=== PATIENT | male | born 2005 | race Hispanic/Latino ===

== ENCOUNTER 2024-11-15 18:58 | Emergency (ER) | payer OTHER, SELFPAY ==
[2024-11-15 19:05] VITALS: BP 107/67; PULSE 62; RESP 20; TEMP 36.5; O2SAT 100
--- OUTSIDE RECORDS SUMMARY | 2024-11-15 19:06 | XMS_ITS | Clinical Summary ---
Author Organization [facility] Address [address] [place] [address] Phone Care Team Providers Care Delivery Driver/Customer Service Name Role Phone Bolivar Guerrero APRN, [employer] Primary Care Pr ovider Allergies Active Allergy Reactions Criticality Noted Date Comments Amoxicillin-Pot Clavulanate Hives,Itching,Rash High 03/28/2018 Peanut (Diagnostic) Hives,Shortness of Breath,Swelling High 03/07/2020 NUT ALLERGY NUT ALLERGY NUT ALLERGY Medications ibuprofen (MOTRIN) 600 MG Tablet Take 1 Tablet by mouth every 6 hours as needed for Moderate or more severe pain. 30 Tablet 01/04/2024 Active Active Problems Problem Noted Date Diagnosed Date Pure hypertriglyceridemia 11/03/2023 Immunizations Immunization Administration Dates Next Due DTAP VACCINE 02/01/2008, 7,09/08/2004,04/07 DTP Vaccine 02/01/2008,12/14/2006,12/16/2004 Hepatitis A Vaccine,unspecif ied Formulation 02/01/2008 Hepatitis A, Pediatric, Unsp ecified Formulation 02/01/2008,12/14/2006 Hepatitis B Vaccine, Pediatric/adolescent 04/17/2005,01/14/2004,2003 Hib Vaccine,unspecified Formulation 04/17/2005,0 09/08/2004,04/07/2004 Inactivated Polio Vaccine 04/17/2005,09/08/2004, 04/07/2004 MMR Vaccine 02/01/2008,04/17/2005 Meningococcal MCV4O 04/09/2021 Meningococcal Vaccine 04/11/2015 Pneumococcal Vaccine Peds - 7 Valent 09/08/2004 Polio Vaccine,unspecified Formulation 02/01/2008 TDAP Vaccine 04/11/2015 Varicella Vaccine Live 02/01/2008,12/14/2006 Family History Medical History Relation Name Comments No Known Problems Father Breast Cancer Maternal Aunt Diabetes Maternal Grandfather Hypotension Maternal Grandfather Thyroid Disease Maternal Grandmother Breast Cancer Maternal Great-Grandmother No Known Problems Mother Diabetes Paternal Grandfather No Known Problems Paternal Grandmother No Known Problems Sister 1 No Known Problems Sister 2 Relation Name Status Comments Father Alive Maternal Aunt Alive Maternal Grandfather Alive Maternal Grandmother Alive Maternal Great-Grandmother Alive Mother Alive Paternal Grandfather Alive Paternal Grandmother Alive Sister 1 Alive Sister 2 Alive Social History Tobacco Use Types Packs/Day Years Used Date Smoking Tobacco: Never Smokeless Tobacco: Never Tobacco Cessation:Counseling Given: No Alcohol Use Standard Drinks/Week Comments Yes 0 (1 standard drink = 0.6 oz pur e alcohol) occassionally AUDIT-C Answer Date Recorded Q1: How often do you have a drink containing alc ohol? Never 03/07/2020 Average Number of Drinks Not on file 020 Frequency of Binge Drinking Not on file 02/26 PHQ-2 Answer Date Recorded Total Score - Questions 1-9 0 02/26 Sexually Active Control Partners Comments Yes Condom Female, Male Sex and Gender Information Value Date Recorded Sex Assigned at Not on file Legal Sex Male 12:03 PM CDT Gender Identity Not on file Sexual Orientation Not on file Occupation Industry Job Start Date Job End Date Student Not on file Not on file Not on file Last Filed Vital Signs Vital Sign Reading Time Taken Comments Blood Pressure 110/68 01/04/2024 4:52 PM CDT Pulse 82 01/04/2024 4:52 PM CDT Temperature 35.6 C (96 F) 01/04/2024 3:58 PM CDT Respiratory Rate 16 01/04/2024 4:52 PM CDT Oxygen Saturation 100% 01/04/2024 4:52 PM CDT Inhaled Oxygen Concentration - - Weight 63.5 kg (140 lb) 01/04/2024 3:58 PM CDT Height 167.6 cm (5' 6 ) 01/04/2024 3:58 PM CDT Body Mass Index 22.6 01/04/2024 3:58 PM CDT Plan of Treatment Health Maintenance Due Date Last Done Comments Human Papillomavirus (HPV) Immunization (1 - Male 3-dose series) 12/12/2018 Meningococcal B Immunization (1 of 2 - Standard) 2019 Influenza Immunization (#1) 2024 SARS-COV-2 Immunization ( - season) 2024 DTaP/Tdap/Td Immunization (7 - Td or Tdap) 04/11/2025 04/11/2015, 02/01/2008, 02/01/2008, Additional history exists Respiratory Syncytial Virus (RSV) Immunization (Adult) (1 - 1-dose 75+ series) 12/12/2078 Pneumococcal Immunization Combined Aged Out 09/08/2004 No longer eligible based on patient's age to complete this topic Hepatitis B Immunization Completed 005, 01/14/2004, 2003 Polio (IPV) Immunization Discontinued 005, 09/08/2004, 04/07/2004 Hepatitis A Immunization Discontinued 008, 02/01/2008, 12/14/2006 Measles Mumps Rubella (MMR) Immunization Discontinued 02/01/2008, 04/17/2005 Varicella Immunization Discontinued 02/01/2008, 2006 Meningococcal Immunization (ACWY) Completed 04/09/2021, 04/11/2015 Hepatitis C Virus (HCV) Screening Completed 11/02/2023 Rotavirus Immunization Aged Out No lo nger eligible based on patient's age to complete this topic Procedures Procedure Name Priority Date/Time Associated Diagnosis Comments HEPATITIS C ANTIBODY Routine 11/02/2023 3:36 PM CDT Encounter for hepatitis C virus screening test for high risk patient from Last 3 Months or Most Recently Relevant to Health Maintenance Results * HEPATITIS C ANTIBODY (11/02/2023 3:36 PM CDT) hepatitis C antibody 0.12 <1 S/CO 11/02/2023 10:10 PM CDT [facility] Comment: Signal/Cutoff ratio < 0.79 is Nondetected Signal/Cutoff ratio 0.80-0.99 is Grayzone Signal/Cutoff ratio > 0.99 is Detected Supplemental assays are recommended if signal/cutoff ratio is >/=1.00. Signal/cutoff ratio result >/= 5.00 is 97% predictive of positivity for recombinant immunoblot assay (RIBA) and will be reported to the [place] Department of Public [facility] as required. Blood Venipuncture / Unknown 11/02/2023 3:36 PM CDT 11/02/2023 4:22 PM CDT us Bolivar Guerrero APRN, [employer] CHEMISTRY ORDERA BLES Final Result [facility] [address] [place] [address], from Last 3 Months or Most Recently Relevant to Health Maintenance Insurance [facility] Care Teams Delivery Driver/Customer Service Relationship Specialty Start Date End Date Bolivar Guerrero APRN, [employer] [address] [place] [phone] PCP - General Advanced Practice Nurse 11/02/23
--- NOTE | 2024-11-15 19:24 | ED_ITS ---
HPI - Skin/Abscess/Foreign Bdy General Chief complaint: Skin/Abscess/Foreign Body Stated complaint: Rash Time Seen by Provider: 11/15/24 19:24 Source: patient Mode of arrival: ambulatory Limitations: no limitations History of Present Illness HPI narrative: 18 yo male presented for c/o itchy red rash to scrotal area. Onset 1 week. Applied eczema cream without improvement, then applied fungal cream. Says the fungal cream helped the itching but has not seen improvement in the appearance of the rash. Denies testicular swelling or pain. Denies any other skin concerns at this time. Related Data Allergies Allergy/AdvReac Type Severity Reaction Status Date / Time AMOXICILLIN TRIHYDRATE Allergy Mild Unknown Uncoded 11/15/24 19:15 POTASSIUM CLAVULANATE Allergy Mild Unknown Uncoded 11/15/24 19:15 Peanuts Allergy Unknown Unknown Uncoded 11/15/24 19:15 Review of Systems Review of Systems: CONSTITUTIONAL: Denies body aches, fever, chills, or sweats. EYES: Denies visual changes, redness, or discharge. ENT: Denies rhinorrhea, congestion CARDIOVASCULAR: Denies chest pain, palpitations, or edema. RESPIRATORY: Denies cough or dyspnea. GASTROINTESTINAL: Denies abdominal pain, nausea, vomiting, or diarrhea. SKIN: per HPI MUSCULOSKELETAL: Denies back pain, joint pain, or myalgia. NEUROLOGIC: Denies headache, numbness, tingling, or weakness. PMFSH Comments At time of signature, I have reviewed and agree with nursing past medical, surgical, social and family history unless otherwise noted. Please see nursing chart for further information. There is no relevant family history pertinent to the presenting complaint Exam Narrative: GENERAL: Well-appearing HEAD: Normocephalic, atraumatic. EYES: conjunctivae clear, and EOMI. ENT: Mucous membranes moist. Oropharynx without edema, erythema or lesions. NECK: Supple. No lymphadenopathy CHEST: Clear to auscultation. HEART: Regular rate and rhythm. SKIN: Warm, dry. right side of penis shaft with approx 1.5cm area of erythema with 2 superficial fissures approx 0.5cm noted, tender, no drainage. Chaperoned by Karlie RODRIGUEZ. NEURO: Alert and oriented x3. Course Course Emergency Course: Patient is aware of diagnosis, understands and agrees to treatment plan. Anticipatory guidance given. Patient agrees to follow-up as directed and is aware of reasons to seek care at the emergency department. Portions of this record may have been created with voice recognition software Level of Care: Express Care Visit Vital Signs Vital signs: Vital Signs Temperature 97.7 F 11/15/24 19:05 Pulse Rate 62 11/15/24 19:05 Respiratory Rate 20 11/15/24 19:05 Blood Pressure 107/67 11/15/24 19:05 Pulse Oximetry 100 11/15/24 19:05 Oxygen Delivery Room Air 11/15/24 19:05 Temperature 97.7 F 11/15/24 19:05 Pulse Rate 62 11/15/24 19:05 Respiratory Rate 20 11/15/24 19:05 Blood Pressure 107/67 11/15/24 19:05 Pulse Oximetry 100 11/15/24 19:05 Oxygen Delivery Room Air 11/15/24 19:05 Reviewed MDM - Skin/Abscess/Foreign Bdy MDM Narrative Medical decision making narrative: Discussed physical exam findings and reviewed rx and plan. Advised supportive measures and signs/symptoms to go to the ER. Pt is appropriate for outpt treatment and f/u. Differential Diagnosis Differential diagnosis: Likely abscess of skin or subcutaneous tissue, viral exanthem, dermatophytosis, urticaria, herpes zoster, cellulitis, eczema, insect bites, impetigo and contact dermatitis Discharge Plan Discharge Clinical Impression: Dermatitis Patient Disposition: Home Condition: Stable Instructions: Antibiotic Form, Dermatitis (ED) Additional Instructions: take medication as directed once a week until symptoms resolved You can apply xgzl-kse-zvlatye cream such as clotrimazole according to package directions Keep the area clean and dry Go to the ER for any worsening symptoms or concerns Recommend establishing with a primary care provider to follow up Patient Language: Romanian Prescriptions: New fluconazole 150 mg tablet 150 mg PO WEEKLY 28 Days Qty: 4 0RF Follow-up/Referrals: UNKNOWN,DOCTOR [Primary Care Provider] -
== END 2024-11-15 19:42 | disposition home or self-care (01) ==
PROVIDERS: Emergency Provider Nurse Practitioner Family
DX: L30.9 Dermatitis, unspecified (principal)
CPT/HCPCS: 99203; G0463